=== PATIENT | female | born 1990 | race African-American/Black ===

== ENCOUNTER 2017-07-07 23:38 | Emergency (ER) | payer SELFPAY ==
[~2017-07-07] VITALS: Ht 167.6 cm; Wt 88.6 kg
[~2017-07-07 23:38] MED LIST: FLUO20CA33; QUET50TA
[2017-07-07 23:45] VITALS: BP 129/90
== END 2017-07-08 04:15 | disposition left against medical advice (07) ==
LOC: ER 23:38
DX: M25.519 Pain in unspecified shoulder (principal); Z53.21 Procedure and treatment not carried out due to patient leaving prior to being seen by health care provider